=== PATIENT | male | born 2000 | race Caucasian/White ===

== ENCOUNTER → 2021-05-10 | Outpatient (CLI) | payer OTHER ==
[~2021-05-10] MED LIST: ZOFRAN ODT4 MG PO
== END ==
LOC: COL.RAD 10:34
DX: I07.1 Rheumatic tricuspid insufficiency (principal)

== ENCOUNTER → 2021-06-21 | Outpatient (CLI) | payer OTHER | LOC: COL.RAD 07:30 | DX: M54.2 Cervicalgia (principal); R51.9 Headache, unspecified | CPT/HCPCS: A9585 ==

== ENCOUNTER → 2021-07-07 | Outpatient (CLI) | payer OTHER | LOC: COL.RAD 10:56 | DX: R51.9 Headache, unspecified (principal) | CPT/HCPCS: Q9967 ==

== ENCOUNTER 2021-08-05 12:13 | Outpatient (CLI) | payer OTHER ==
[~2021-08-05] VITALS: Ht 175.3 cm; Wt 68.0 kg
[2021-08-05 12:30] VITALS: BP 131/84; PULSE 58
[2021-08-05 13:18] VITALS: BP 123/79; PULSE 58
[2021-08-05 13:19] VITALS: BP 123/79; PULSE 52
[2021-08-05 13:37] VITALS: BP 120/81; PULSE 54
[2021-08-05 13:51] VITALS: BP 128/82; PULSE 61
[2021-08-05 13:54] LABS: CSF APPEARANCE CLEAR; CSF COLOR COLORLESS; CSF RBC 0 /mm3 (0-0)
[2021-08-05 13:55] LABS: CSF MONONUCLEAR 100 % (70-100); CSF POLYMORPHONUCLEAR 0 % (0-6)
[2021-08-05 14:01] LABS: GLUCOSE,CSF 52 mg/dL (40-70)
[2021-08-05 14:04] VITALS: BP 129/84; PULSE 58
--- NOTE | 2021-08-05 14:35 | NUR ---
Pt assisted out to father's car by wheelchair. DC instructions were reviewed, both expressed understanding. No c/o headache.
== END 2021-08-05 14:36 | disposition home or self-care (01) ==
LOC: COL.RAD 12:13
DX: R51.9 Headache, unspecified (principal)

== ENCOUNTER 2021-08-08 11:04 | Emergency (ER) | payer OTHER ==
[~2021-08-08] VITALS: Ht 175.3 cm; Wt 65.9 kg
[2021-08-08 11:10] VITALS: TEMP 97.6
[2021-08-08] MEDS ORDERED: ZOFRAN ODT4 MG PO (12:17)
[2021-08-08 12:25] VITALS: BP 122/88; PULSE 48
== END 2021-08-08 12:25 | disposition home or self-care (01) ==
LOC: COL.ER 11:04
DX: G97.1 Other reaction to spinal and lumbar puncture (principal); Z98.890 Other specified postprocedural states
CPT/HCPCS: J2405; J7030